=== PATIENT | female | born 1980 ===

== ENCOUNTER 2017-01-12 11:25 | Emergency (ER) | payer OTHER ==
[2017-01-12 12:05] VITALS: BMI 29.7
[2017-01-12 12:06] VITALS: TEMP 98.1; O2SAT 100
[2017-01-12] MEDS ORDERED: Sodium Chloride 0.9% 1,000 ML IV STA (12:07)
--- NOTE | 2017-01-12 12:17 | ED PDOC ---
Arrival/HPI - General Chief Complaint: GI Problem Time Seen by Provider: 01/12/17 11:59 Historian: Patient - History of Present Illness Narrative History of Present Illness (Text): 01/12/17 12:13 A 36 year old female, whose past medical history includes borderline diabetes, presents to the emergency department complaining of multiple episodes of non- bloody watery diarrhea for the past 5 days. Patient reports approximately 7-8 episodes per day. She notes mild nausea and epigastric abdominal discomfort. Patient denies any fever, chills, vomiting, urinary symptoms, chest pain, shortness of breath or any other complaints. Time/Duration: Other (5 days) Symptom Course: Unchanged Quality: Other Context: Home Past Medical History - Provider Review Nursing Documentation Reviewed: Yes - Past History Past History: Non-Contributing - Infectious Disease Hx of Infectious Diseases: None - Tetanus Immunization Tetanus Immunization: Unknown - Cardiac Hx Cardiac Disorders: Yes - Pulmonary Hx Respiratory Disorders: No - Neurological Hx Neurological Disorder: Yes HX Cerebrovascular Accident: Yes (2001) - HEENT Hx HEENT Disorder: No - Renal Hx Renal Disorder: No - Endocrine/Metabolic Hx Endocrine Disorders: No - Hematological/Oncological Hx Blood Disorders: No - Integumentary Hx Dermatological Disorder: No - Musculoskeletal/Rheumatological Other/Comment: R carpal tunnel - Gastrointestinal Hx Gastrointestinal Disorders: No - Genitourinary/Gynecological Hx Genitourinary Disorders: No - Psychiatric Hx Psychophysiologic Disorder: No Hx Substance Use: No - Past Surgical History Past Surgical History: No Previous - Anesthesia Hx Anesthesia: No - Suicidal Assessment Feels Threatened In Home Enviroment: No Family/Social History - Physician Review Nursing Documentation Reviewed: Yes Family/Social History: No Known Family HX Smoking Status: Never Smoked Hx Alcohol Use: No Hx Substance Use: No Hx Substance Use Treatment: No Allergies/Home Meds Allergies/Adverse Reactions: Allergies aspirin Allergy (Verified 11/17/15 22:49) ANAPHYLAXIS dexamethasone [From Decadron] Allergy (Verified 11/17/15 22:49) ANAPHYLAXIS dexamethasone sod phosphate [From Decadron] Allergy (Verified 11/17/15 22:49) ANAPHYLAXIS tramadol Allergy (Verified 11/17/15 22:49) ANAPHYLAXIS Home Medications: Home Meds Medication Instructions Recorded Confirmed Clopidogrel [Plavix] 75 mg PO DAILY 06/17/15 01/12/17 Gabapentin [Neurontin] 1 cap PO BID 01/12/17 01/12/17 Gemfibrozil [Lopid] 1 tab PO DAILY 01/12/17 01/12/17 Review of Systems - Physician Review All systems were reviewed & negative as marked: Yes - Review of Systems Constitutional: absent: Fevers, Night Sweats Respiratory: absent: SOB Cardiovascular: absent: Chest Pain Gastrointestinal: Abdominal Pain, Diarrhea, Nausea. absent: Vomiting Genitourinary Female: absent: Dysuria, Frequency, Hematuria Physical Exam Vital Signs Reviewed: Yes Vital Signs Temp Pulse Resp BP Pulse Ox 01/12/17 13:38 82 16 112/87 100 01/12/17 12:05 98.1 F 84 18 116/74 100 Temperature: Afebrile Blood Pressure: Normal Pulse: Regular Respiratory Rate: Normal Appearance: Positive for: Well-Appearing, Non-Toxic, Comfortable Pain Distress: None Mental Status: Positive for: Alert and Oriented X 3 - Systems Exam Head: Present: Atraumatic, Normocephalic Pupils: Present: PERRL Extroacular Muscles: Present: EOMI Conjunctiva: Present: Normal Mouth: Present: Moist Mucous Membranes Neck: Present: Normal Range of Motion Respiratory/Chest: Present: Clear to Auscultation, Good Air Exchange. No: Respiratory Distress, Accessory Muscle Use Cardiovascular: Present: Regular Rate and Rhythm, Normal S1, S2. No: Murmurs Abdomen: Present: Tenderness (Mild epigastric tenderness), Normal Bowel Sounds. No: Distention, Peritoneal Signs, Rebound, Guarding Back: Present: Normal Inspection Upper Extremity: Present: Normal Inspection. No: Cyanosis, Edema Lower Extremity: Present: Normal Inspection. No: Edema Neurological: Present: GCS=15, CN II-XII Intact, Speech Normal Skin: Present: Warm, Dry, Normal Color. No: Rashes Psychiatric: Present: Alert, Oriented x 3, Normal Insight, Normal Concentration Medical Decision Making ED Course and Treatment: 01/12/17 12:13 Impression: A 36 year old female with multiple episodes of diarrhea. Patient notes nausea and mild epigastric abdominal discomfort. Differential Diagnosis included but are not limited to: Gastroenteritis Plan: -- Labs -- Pepcid and IV fluids -- Reassess and disposition Progress Notes: 01/12/17 13:20 On re-evaluation, patient feels better and is in no acute distress. She is able to tolerate PO intake. Patient in agreement with plan to be discharged home. Patient was instructed to follow up with PMD or return if symptoms worsen or new concerning symptoms arise. - Lab Interpretations Lab Results: 01/12/17 12:40 01/12/17 12:40 Lab Results 01/12/17 12:40: Sodium 144, Potassium 3.9, Chloride 104, Carbon Dioxide 26, Anion Gap 18, BUN 11, Creatinine 0.6, Est GFR ( Amer) > 60, Est GFR (Non- Af Amer) > 60, Random Glucose 116 H, Calcium 9.4, Magnesium 1.9, Total Bilirubin 0.6, AST 51 H, ALT 84 H, Alkaline Phosphatase 76, Total Protein 8.3, Albumin 4.7, Globulin 3.6, Albumin/Globulin Ratio 1.3, Lipase 89 01/12/17 12:40: WBC 9.3 D, RBC 4.79, Hgb 13.5, Hct 39.2, MCV 81.8, MCH 28.2, MCHC 34.4, RDW 13.6, Plt Count 324, MPV 10.3, Gran % 67.3, Lymph % (Auto) 21.3 L , [place] % (Auto) 5.5, Eos % (Auto) 5.7 H, Baso % (Auto) 0.2, Gran # 6.25, Lymph # 2.0, [place] # 0.5, Eos # 0.5, Baso # 0.02 I have reviewed the lab results: Yes - Medication Orders Current Medication Orders: Discontinued Medications Famotidine (Pepcid) 20 mg IVP STAT STA Stop: 01/12/17 12:08 Last Admin: 01/12/17 12:50 Dose: 20 mg Sodium Chloride (Sodium Chloride 0.9%) 1,000 mls @ 1,000 mls/hr IV .Q1H STA Stop: 01/12/17 13:06 Last Admin: 01/12/17 12:50 Dose: 1,000 mls/hr - Scribe Statement The provider has reviewed the documentation as recorded by the Nolan Santoyo Provider Scribe Attestation: All medical record entries made by the Scribe were at my direction and personally dictated by me. I have reviewed the chart and agree that the record accurately reflects my personal performance of the history, physical exam, medical decision making, and the department course for this patient. I have also personally directed, reviewed, and agree with the discharge instructions and disposition. Disposition/Present on Arrival - Present on Arrival Any Indicators Present on Arrival: No History of DVT/PE: No History of Uncontrolled Diabetes: No Urinary Catheter: No History of Decub. Ulcer: No History Surgical Site Infection Following: None - Disposition Have Diagnosis and Disposition been Completed?: Yes Diagnosis: Gastroenteritis Disposition: HOME/ ROUTINE Disposition Time: 13:20 Patient Plan: Discharge Condition: IMPROVED Discharge Instructions (ExitCare): Gastroenteritis (ED) Additional Instructions: Ms Sotelo, thank you for letting us take care of you today. Your provider was Dr. Dixon. You were treated for Gastroenteritis. The emergency medical care you received today was directed at your acute symptoms. If you were prescribed any medication, please fill it and take as directed. It may take several days for your symptoms to resolve. Return to the Emergency Department if your symptoms worsen, do not improve, or if you have any other problems. Please contact your doctor or call one of the physicians/clinics you have been referred to that are listed on the Patient Visit Information form that is included in your discharge packet. Bring any paperwork you were given at discharge with you along with any medications you are taking to your follow up visit. Our treatment cannot replace ongoing medical care by a primary care provider (PCP) outside of the emergency department. Thank you for allowing the [facility] team to be part of your care today. If you had an X-Ray or CT scan: A Radiologist will review the ED reading if any change in treatment is needed we will contact you. If you had a blood, urine, or wound culture: It will take several days for the results, if any change in treatment is needed we will contact you. If you had an STI test: It will take 48 hours for the results. Please call after 1 week if you have not heard back. Prescriptions: Ranitidine HCl [Zantac] 150 mg PO BID PRN #30 tablet PRN Reason: Pain, Mild (1-3) Referrals: [facility], [Primary Care Provider] - Follow up with primary Forms: [employer] (French), WORK NOTE
[2017-01-12 13:02] LABS: BASO # 0.02 K/mm3 (0.0-2.0); BASO % 0.2 % (0.0-3.0); EOS # 0.5 (0.0-0.7); EOS % 5.7 % (1.5-5.0); GRAN # 6.25 (1.4-6.5); GRAN % 67.3 % (50.0-68.0); HEMATOCRIT 39.2 % (36.0-48.0); LYMPH % 21.3 % (22.0-35.0); MEAN CELL VOLUME 81.8 fl (80.0-105.0); MEAN CORPUSCULAR HEMOGLOBIN 28.2 pg (25.0-35.0); MEAN CORPUSCULAR HGB CONC 34.4 g/dl (31.0-37.0); MEAN PLATELET VOLUME 10.3 fl (7.0-11.0); MONO # 0.5 (0.1-0.6); MONO % 5.5 % (1.0-6.0); RED CELL DISTRIBUTION WIDTH 13.6 % (11.5-14.5); WHITE BLOOD COUNT 9.3 10^3/ul (4.5-11.0)
[2017-01-12 13:11] LABS: ALB/GLOB RATIO 1.3 (1.1-1.8); ALKALINE PHOSPHATASE 76 U/L (38-126); ALT/SGPT 84 U/L (7-56); AST/SGOT 51 U/L (14-36); BILIRUBIN,TOTAL 0.6 mg/dL (0.2-1.3); BLOOD UREA NITROGEN 11 mg/dL (7-21); CALCIUM 9.4 mg/dL (8.4-10.5); CARBON DIOXIDE 26 mmol/L (21-33); CHLORIDE 104 mmol/L (98-107); GFR AFRICAN-AMERICAN > 60; GLUCOSE,RANDOM 116 mg/dL (70-110); LIPASE 89 U/L (23-300); MAGNESIUM 1.9 mg/dL (1.7-2.2); POTASSIUM 3.9 mmol/L (3.6-5.0); SODIUM 144 mmol/L (132-148); TOTAL PROTEIN 8.3 g/dL (5.8-8.3)
[2017-01-12 13:41] VITALS: BP 112/87; PULSE 82; RESP 16
== END 2017-01-12 13:40 | disposition home or self-care (01) ==
LOC: ED 11:25
DX: K52.9 Noninfective gastroenteritis and colitis, unspecified (principal)
CPT/HCPCS: 80053; 83690; 83735; 85025; 96374; 99284; J7040